=== PATIENT | male | born 1960 | race Caucasian/White ===

== ENCOUNTER 2018-11-04 13:17 | Emergency (ER) | payer OTHER ==
[~2018-11-04] VITALS: Ht 188 cm; Wt 73.9 kg
[2018-11-04 13:24] VITALS: BP_SYST 154
[2018-11-04] MEDS ORDERED: ENOXAPARIN SODIUM 80 MG/0.8 ML SYRINGE SUBCUT ONE (14:15)
[2018-11-04 14:51] LABS: CALCIUM 8.5 mg/dL (8.4-11.0); CREATININE 0.89 mg/dL (0.55-1.30); HEMATOCRIT 52.7 % (36-54); HEMOGLOBIN 17.7 g/dL (14.0-18.0); MEAN CORPUSCULAR HEMOGLOBIN 33 pg (27-31); MEAN CORPUSCULAR VOLUME 98 fL (79.0-98.0); POTASSIUM 3.7 mmol/L (3.5-5.1); RED BLOOD CELL COUNT(AUTO) 5.39 MIL/uL (4.2-6.2); WHITE BLOOD COUNT (AUTO) 7.4 K/uL (4.8-10.8)
[2018-11-04 14:52] LABS: BASOPHILS % (AUTO) 0.5 % (0.0-2.0); EOSINOPHILS % (AUTO) 0.5 % (0.0-4.0); LYMPHOCYTES # (AUTO) 0.7 K/uL (1.0-5.5); LYMPHOCYTES % (AUTO) 9.6 % (20.5-51.5); MEAN CORPUSCULAR HGB CONC 34 % (32-36); MONOCYTES # (AUTO) 0.7 K/uL (0.0-1.0); MONOCYTES % (AUTO) 9.6 % (1.7-9.3); NEUTROPHILS # (AUTO) 5.9 K/uL (1.8-7.7); NEUTROPHILS % (AUTO) 79.8 % (40.0-70.0); PLATELET COUNT (AUTO) 135 K/uL (130-430); RED CELL DISTRIBUTION WIDTH 14.4 % (9.0-15.0)
[2018-11-04 14:55] LABS: ALBUMIN 3.5 g/dL (3.4-4.8); TOTAL BILIRUBIN 1.7 mg/dL (0.0-1.0)
[2018-11-04 14:56] LABS: INR 1.1 (0.80-1.20)
[2018-11-04] MEDS ORDERED: RIVAROXABAN 15 MG TABLET PO ONE (15:15)
[2018-11-04 15:23] VITALS: BP_SYST 134
== END 2018-11-04 15:23 | disposition home or self-care (01) ==
LOC: SED 13:17
DX: I82.4Z2 Acute embolism and thrombosis of unspecified deep veins of left distal lower extremity (principal); R03.0 Elevated blood-pressure reading, without diagnosis of hypertension; Z91.010 Allergy to peanuts; Z91.018 Allergy to other foods
CPT/HCPCS: 36415; 80053; 85025; 85610-TC; 85730-TC; 93971; 99284

== ENCOUNTER 2022-08-07 21:39 | Emergency (ER) | payer OTHER ==
[~2022-08-07] VITALS: Ht 182.9 cm; Wt 72.6 kg
[2022-08-07 21:55] VITALS: BP_SYST 152
--- NOTE | 2022-08-07 22:01 | NUR ---
UA specimen provided to pt; pending urine collection at this time.
--- NOTE | 2022-08-07 22:01 | NUR ---
Patient triaged and placed in waiting room. VSS and patient appears in no acute distress at this time. Accompanied by self, awaiting available bed, and MD notified of need for MSE.
--- NOTE | 2022-08-07 22:15 | NUR ---
MD Babcock examining pt.
[2022-08-08] MEDS ORDERED: KETOROLAC TROMETHAMINE 15 MG VIAL IVP ONE (00:15)
[2022-08-08 00:19] LABS: CALCIUM 8.4 mg/dL (8.4-11.0); CREATININE 0.98 mg/dL (0.55-1.30)
[2022-08-08 00:31] LABS: ALBUMIN 3.5 g/dL (3.4-4.8); TOTAL BILIRUBIN 0.8 mg/dL (0.0-1.0)
[2022-08-08 00:43] LABS: BASOPHILS % (AUTO) 0.5 % (0.0-2.0); EOSINOPHILS # (AUTO) 0.1 K/uL (0.0-0.4); EOSINOPHILS % (AUTO) 1.9 % (0.0-4.0); HEMATOCRIT 43.9 % (36-54); LYMPHOCYTES # (AUTO) 1.7 K/uL (1.0-5.5); MEAN CORPUSCULAR HEMOGLOBIN 33 pg (27-31); MEAN CORPUSCULAR HGB CONC 34 % (32-36); MEAN CORPUSCULAR VOLUME 96 fL (79.0-98.0); MONOCYTES # (AUTO) 0.5 K/uL (0.0-1.0); MONOCYTES % (AUTO) 7.3 % (1.7-9.3); NEUTROPHILS # (AUTO) 4.2 K/uL (1.8-7.7); NEUTROPHILS % (AUTO) 64.3 % (40.0-70.0); PLATELET COUNT (AUTO) 162 K/uL (130-430); RED BLOOD CELL COUNT(AUTO) 4.58 MIL/uL (4.2-6.2); RED CELL DISTRIBUTION WIDTH 12.5 % (9.0-15.0); WHITE BLOOD COUNT (AUTO) 6.5 K/uL (4.8-10.8)
[2022-08-08 02:41] LABS: BILIRUBIN,URINE NEGATIVE (NEGATIVE); BLOOD, URINE NEGATIVE (NEGATIVE); COLOR,URINE YELLOW (YELLOW); GLUCOSE,URINE NEGATIVE (NEGATIVE); KETONES,URINE NEGATIVE (NEGATIVE); LEUKOCYTE ESTERASE ,URINE NEGATIVE (NEGATIVE); NITRITE, URINE NEGATIVE (NEGATIVE); PH,URINE 5.5 (5.0-8.0); PROTEIN URINE NEGATIVE (NEGATIVE); UROBILINOGEN,URINE 0.2 (0.2-1.0)
[2022-08-08 02:42] LABS: CLARITY/URINE CLEAR (CLEAR)
[2022-08-08] MEDS ORDERED: IBUP-1969 PO (03:02)
--- NOTE | 2022-08-08 03:16 | NUR ---
Patient given written and verbal discharge instructions and verbalizes understanding. ER MD discussed with patient the results and treatment provided. Patient in stable condition. ID arm band removed. IV catheter removed intact and dressing applied, no active bleeding. Rx of iBUPROFEN given. Patient educated on pain management and to follow up with PMD. Pain Scale 0. Opportunity for questions provided and answered. Medication side effect fact sheet provided.
[2022-08-08 03:17] VITALS: BP_SYST 152
== END 2022-08-08 03:17 | disposition home or self-care (01) ==
LOC: SED 21:39
DX: N20.0 Calculus of kidney (principal); K57.92 Diverticulitis of intestine, part unspecified, without perforation or abscess without bleeding; R10.32 Left lower quadrant pain; R11.0 Nausea; Z91.018 Allergy to other foods; Z91.010 Allergy to peanuts; Z79.899 Other long term (current) drug therapy
CPT/HCPCS: 99285; 80053; 83690; 85025; 36415; 81003; 74177; 96374; 76376; J1885; Q9967

== ENCOUNTER 2022-11-07 16:33 | Emergency (ER) | payer OTHER ==
[~2022-11-07] VITALS: Ht 188 cm; Wt 63.5 kg
[~2022-11-07 16:33] MED LIST: IBUP-1969 PO
[2022-11-07 16:45] VITALS: BP_SYST 92
--- NOTE | 2022-11-07 16:45 | NUR ---
Patient triaged and placed in waiting room. VSS and patient appears in no acute distress at this time. Accompanied by SELF, awaiting available bed, and MD notified of need for MSE.
--- NOTE | 2022-11-07 16:50 | NUR ---
PT BIB SELF FROM HOME WITH C/O LLQ ABN PAIN THAT THE PT HAS HAD SINCE AUGUST. PT HAS BEEN TO THE ER IN THE PAST FOR THIS PAIN. PT STATES HIS PCP HAS GIVEN HIM A TREATMENT OF CIPRO AND FLAGYN WITH NO IMPROVEMENT IN SYMPTOMS. PT STATES HE IS HAVING PAIN AND BURNING WHEN URINATING. PT STATES HE HAS A HX OF DIVERTICULOSIS AND DIVERTICULITIS. HX - DIVERTICULOSIS AND DIVERTICULITIS. 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 SAFETY PRECAUTIONS AND COMFORT MEASURES IN PLACE. PENDING MD MAYORGA AND ORDERS.
--- NOTE | 2022-11-07 16:55 | NUR ---
DR. POLLOCK AT BEDSIDE EXAMINING THE PT.
[2022-11-07 17:53] LABS: BASOPHILS % (AUTO) 0.9 % (0.0-2.0); EOSINOPHILS # (AUTO) 0.1 K/uL (0.0-0.4); EOSINOPHILS % (AUTO) 1.8 % (0.0-4.0); HEMOGLOBIN 15.7 g/dL (14.0-18.0); LYMPHOCYTES # (AUTO) 1.3 K/uL (1.0-5.5); LYMPHOCYTES % (AUTO) 25.3 % (20.5-51.5); MEAN CORPUSCULAR HEMOGLOBIN 33 pg (27-31); MEAN CORPUSCULAR HGB CONC 34 % (32-36); MEAN CORPUSCULAR VOLUME 97 fL (79.0-98.0); MONOCYTES # (AUTO) 0.4 K/uL (0.0-1.0); MONOCYTES % (AUTO) 7.1 % (1.7-9.3); NEUTROPHILS # (AUTO) 3.3 K/uL (1.8-7.7); NEUTROPHILS % (AUTO) 64.9 % (40.0-70.0); PLATELET COUNT (AUTO) 239 K/uL (130-430); RED BLOOD CELL COUNT(AUTO) 4.76 MIL/uL (4.2-6.2); RED CELL DISTRIBUTION WIDTH 13.4 % (9.0-15.0); WHITE BLOOD COUNT (AUTO) 5.1 K/uL (4.8-10.8)
[2022-11-07 18:11] LABS: ALANINE AMINOTRANSFERASE 42 U/L (12-78); ALBUMIN 3.6 g/dL (3.4-4.8); AMYLASE 53 U/L (0-100); ANION GAP 10 (5-15); ASPARTATE AMINOTRANSFERASE 37 U/L (10-37); CALCIUM 8.4 mg/dL (8.4-11.0); CHLORIDE 101 mmol/L (98-107); CREATININE 0.92 mg/dL (0.55-1.30); GFR AFRICAN AMERICAN 107 mL/min (>90); GLUCOSE 94 mg/dL (70-99); LIPASE 71 U/L (73-393); UREA NITROGEN, BLOOD 8 mg/dL (8-21)
[2022-11-07 18:12] LABS: C-REACTIVE PROTEIN QUANT < 0.2 mg/dL (0-0.5)
--- NOTE | 2022-11-07 18:22 | NUR ---
PT BIB SELF FROM HOME WITH C/O LLQ ABN PAIN THAT THE PT HAS HAD SINCE AUGUST. PT HAS BEEN TO THE ER IN THE PAST FOR THIS PAIN. PT STATES HIS PCP HAS GIVEN HIM A TREATMENT OF CIPRO AND FLAGYN WITH NO IMPROVEMENT IN SYMPTOMS. PT STATES HE IS HAVING PAIN AND BURNING WHEN URINATING. PT STATES HE HAS A HX OF DIVERTICULOSIS AND DIVERTICULITIS. HX - DIVERTICULOSIS AND DIVERTICULITIS. 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 SAFETY PRECAUTIONS AND COMFORT MEASURES IN PLACE. PENDING MD MAYORGA AND ORDERS.
--- NOTE | 2022-11-07 18:22 | NUR ---
Note undjelly in EDM - 11/07/22 at 1826 by [email or web address] PT BIB SELF FROM HOME WITH C/O LLQ ABN PAIN THAT THE PT HAS HAD SINCE AUGUST. PT HAS BEEN TO THE ER IN THE PAST FOR THIS PAIN. PT STATES HIS PCP HAS GIVEN HIM A TREATMENT OF CIPRO AND FLAGYN WITH NO IMPROVEMENT IN SYMPTOMS. PT STATES HE IS HAVING PAIN AND BURNING WHEN URINATING. PT STATES HE HAS A HX OF DIVERTICULOSIS AND DIVERTICULITIS. HX - DIVERTICULOSIS AND DIVERTICULITIS. PT IS AAXO4, NAD, VSS, PT BREATHING EVEN AND UNLABORED ON RA, PT ON SANITATION INSPECTOR SHOWING NSR. SAFETY PRECAUTIONS AND COMFORT MEASURES IN PLACE. PENDING MD MAYORGA AND ORDERS.
[2022-11-07] MEDS ORDERED: HYDR-3917 PO (18:41)
[2022-11-07] MEDS ORDERED: IBUP-1969 PO (18:41)
[2022-11-07] MEDS ORDERED: ONDA8TAB60 PO (18:41)
[2022-11-07] MEDS ORDERED: KETOROLAC TROMETHAMINE 60 MG/2 ML VIAL IM ONE (18:45)
[2022-11-07] MEDS ORDERED: ONDANSETRON 4 MG ODT TAB PO ONE (18:45)
[2022-11-07 18:49] LABS: BILIRUBIN,URINE 1+ (NEGATIVE); BLOOD, URINE NEGATIVE (NEGATIVE); CLARITY/URINE CLEAR (CLEAR); COLOR,URINE YELLOW (YELLOW); GLUCOSE,URINE NEGATIVE (NEGATIVE); KETONES,URINE 2+ (NEGATIVE); LEUKOCYTE ESTERASE ,URINE NEGATIVE (NEGATIVE); NITRITE, URINE NEGATIVE (NEGATIVE); PROTEIN URINE NEGATIVE (NEGATIVE); UROBILINOGEN,URINE 0.2 (0.2-1.0)
[2022-11-07 19:09] LABS: BACTERIA,URINE RARE /HPF (None Seen); RBC,URINE NONE SEEN /HPF (0-3); WBC,URINE 0-3 /HPF (0-3)
[2022-11-07 19:10] LABS: MUCUS,URINE 1+ /LPF (None Seen)
--- NOTE | 2022-11-07 19:11 | NUR ---
PT MEDICALLY CLEARED FOR DISCHARGE. D/C INSTRUCTIONS GIVEN TO PT. PT TO FOLLOW-UP WITH PCP WITHIN 1-3 DAYS AND TO RETURN TO ED FOR WORSENING S/S. PT VERBALZIED UNDERSTANDING. PT AAX04, NAD, WRISTBAND REMOVED. PT AMBULATORY WITH STEADY GAIT. PT LEFT ED WITH ALL BELONGINGS.
[2022-11-07 19:12] VITALS: BP_SYST 125
== END 2022-11-07 19:12 | disposition home or self-care (01) ==
LOC: SED 16:33
DX: R10.32 Left lower quadrant pain (principal); R11.0 Nausea; R30.0 Dysuria; Z91.018 Allergy to other foods; Z79.899 Other long term (current) drug therapy
CPT/HCPCS: 99285; 74176; 80053; 81000; 82150; 83690; 85025; 86140; 36415; 76376; 96372; 83605; Q0162; J1885

== ENCOUNTER 2023-09-21 21:24 | Emergency (ER) | payer OTHER ==
[~2023-09-21] VITALS: Ht 182.9 cm; Wt 99.8 kg
[~2023-09-21 21:24] MED LIST changes: +HYDR-3917 PO; +ONDA8TAB60 PO
[2023-09-21 21:41] VITALS: BP_SYST 153; PULSE 77; RESP 20; TEMP 97; O2SAT 97
[2023-09-21] MEDS ORDERED: DIPHTH,PERTUSS(ACELL),TET VAC 0.5 ML VIAL (Tdap) I.M. ONE (22:15)
[2023-09-22 04:25] VITALS: BP_SYST 132; PULSE 74; RESP 18; TEMP 97; O2SAT 98
== END 2023-09-22 04:25 | disposition home or self-care (01) ==
LOC: SED 21:24
DX: S00.81XA Abrasion of other part of head, initial encounter (principal); S60.512A Abrasion of left hand, initial encounter; S50.811A Abrasion of right forearm, initial encounter; F10.120 Alcohol abuse with intoxication, uncomplicated; W18.39XA Other fall on same level, initial encounter; Y93.89 Activity, other specified; Y92.89 Other specified places as the place of occurrence of the external cause; Y99.8 Other external cause status; Z91.010 Allergy to peanuts; Z91.018 Allergy to other foods; Z79.899 Other long term (current) drug therapy; Y90.9 Presence of alcohol in blood, level not specified
CPT/HCPCS: 99283